=== PATIENT | female | born 1940 | race African-American/Black ===

== ENCOUNTER 2022-07-07 20:35 | Emergency (ER) | payer MEDICARE, OTHER ==
[~2022-07-07] VITALS: Ht 170.2 cm; Wt 78.0 kg
[2022-07-07] MEDS ORDERED: MORPHINE SULFATE 2 MG/ML CPJ (NOT FOR IM USE) IV ONE (21:15)
[2022-07-07 23:21] LABS: BASOPHILS % 0.2 % (0.0-2.0); HEMATOCRIT. 24.7 % (36.0-48.0); HEMOGLOBIN. 8.2 g/dL (12.0-16.0); LYMPHOCYTES % 19.2 % (20.0-50.0); MEAN CORPUSCULAR HEMOGLOBIN 29.2 pg (28.0-32.0); MEAN CORPUSCULAR VOLUME 88.1 fL (81.0-99.0); MEAN PLATELET VOLUME 8.2 fl (7.4-10.4); MONOCYTES % 6.8 % (2.0-8.0); NEUTROPHILS % 72.8 % (40.0-76.0); PLATELET 165 x1000/uL (130-400); RED BLOOD CELL COUNT 2.81 mill/uL (4.2-5.4); RED CELL DISTRIBUTION WIDTH 17.5 % (11.6-14.6)
[2022-07-07 23:27] LABS: CHLORIDE 101 mEq/L (98-107)
[2022-07-08] MEDS ORDERED: POTASSIUM CHLORIDE 20MEQ TABLET SR PO ONE (03:15)
[2022-07-08 03:17] LABS: INR > 10.0; PROTHROMBIN TIME > 100.0 sec (9.6-11.0)
[2022-07-08 06:00] VITALS: BP 161/80
== END 2022-07-08 06:51 | disposition short-term general hospital (02) ==
LOC: ER 21:08 → CANBEDREQ 07-08 08:26
DX: S72.92XA Unspecified fracture of left femur, initial encounter for closed fracture (principal); M97.12XA Periprosthetic fracture around internal prosthetic left knee joint, initial encounter; Z20.822 Contact with and (suspected) exposure to COVID-19; Z88.0 Allergy status to penicillin; Z86.73 Personal history of transient ischemic attack (TIA), and cerebral infarction without residual deficits; Z98.890 Other specified postprocedural states; W18.30XA Fall on same level, unspecified, initial encounter; Y93.89 Activity, other specified; Y92.89 Other specified places as the place of occurrence of the external cause; Y99.8 Other external cause status
CPT/HCPCS: 29505; 36415; 71045; 73030; 73502; 73552; 73562; 80053; 82962; 85025; 85610; 86850; 86900; 86901; 87426; 93005; 96374; 99291; C9803; J2270

== ENCOUNTER 2022-10-13 08:48 | Inpatient (IN) | payer OTHER ==
[~2022-10-13] VITALS: Ht 154.9 cm; Wt 71.3 kg
[2022-10-13] MEDS ORDERED: ETOMIDATE 2MG/ML 10ML VIAL IV ONE (09:00)
[2022-10-13] MEDS ORDERED: SODIUM CHLORIDE 0.9% 1,000 ML IV ONE (09:00)
[2022-10-13] MEDS ORDERED: MIDAZOLAM HCL 100 MG in DEXT 5% WATER 80 ML IV ONE (09:00)
[2022-10-13] MEDS ORDERED: FENTANYL CITRATE/PF 50MCG/ML 2ML VIAL IV ONE (09:00)
[2022-10-13] MEDS ORDERED: SUCCINYLCHOLINE CHLORIDE 200MG/10ML IV ONE (09:00)
[2022-10-13] MEDS ORDERED: MIDAZOLAM HCL 100 MG in SODIUM CHLORIDE 0.9% 80 ML IV ONE (09:00)
[2022-10-13] MEDS ORDERED: NOREPINEPHRINE 8MG/250ML PMX 250 ML IV STA (09:04)
[2022-10-13 09:12] LABS: BASOPHILS % 0.3 % (0.0-2.0); EOSINOPHILS % 0.1 % (0.0-5.0); HEMATOCRIT. 23.9 % (36.0-48.0); HEMOGLOBIN. 7.5 g/dL (12.0-16.0); LYMPHOCYTES % 13.8 % (20.0-50.0); MEAN CORPUSCULAR HEMOGLOBIN 29.1 pg (28.0-32.0); MEAN CORPUSCULAR VOLUME 93.3 fL (81.0-99.0); MONOCYTES % 6.4 % (2.0-8.0); NEUTROPHILS % 79.4 % (40.0-76.0); PLATELET 145 x1000/uL (130-400); RED BLOOD CELL COUNT 2.56 mill/uL (4.2-5.4); RED CELL DISTRIBUTION WIDTH 19.4 % (11.6-14.6)
[2022-10-13 09:17] LABS: CHLORIDE 87 mEq/L (98-107)
[2022-10-13 09:24] LABS: INR 1.5; PROTHROMBIN TIME 16.2 sec (9.6-11.0)
[2022-10-13] MEDS ORDERED: SODIUM BICARBONATE 8.4% 1 MEQ/ML 50ML SYR IV ONE (09:45)
[2022-10-13] MEDS ORDERED: DEXTROSE 50% WATER 50ML SYRINGE IV ONE (09:45)
[2022-10-13] MEDS ORDERED: ALBUTEROL (0.083%) 2.5MG/3ML NEB HHN ONE (09:45)
[2022-10-13] MEDS ORDERED: INSULIN REGULAR (HUMULIN R) 300UNITS/3ML VIAL IV ONE (09:45)
[2022-10-13] MEDS ORDERED: CALCIUM CHLORIDE 1GM/10ML SYR IV ONE (09:45)
[2022-10-13 10:11] LABS: BG BASE EXCESS 11.9 mmol/L (-2.0-2.0); BG CARBOXYHEMOGLOBIN 1.3 % (0.5-1.5); BG DEOXYHEMOGLOBIN 0.3 % (0.0-5.0); BG FRACTION INSPIRED OXYGEN 100; BG HCO3 ACT 37.2 mmol/L (22.0-26.0); BG METHEMOGLOBIN 0.4 % (0.0-1.5); BG OXYGEN SATURATION 99.7 % (92.0-98.5); BG PCO2 55.2 mmHg (35.0-45.0); BG PH 7.447 (7.350-7.450); BG PO2 485.9 mmHg (75.0-100.0); BG SAMPLE SITE RIGHT RADIAL; BG TOTAL HEMOGLOBIN 7.4 g/dL (12.0-18.0); BG TOTAL RESPIRATORY RATE 18 b/min; BG VENT MODE VENT - AC
[2022-10-13] MEDS ORDERED: VANCOMYCIN 1G PREMIX 200 ML IV ONE (10:15)
[2022-10-13] MEDS ORDERED: SODIUM CHLORIDE 0.9% 1000ML BAG (SEPSIS BOLUS) IV ONE (10:15)
[2022-10-13] MEDS ORDERED: MEROPENEM 1,000 MG in SODIUM CHLORIDE 0.9% 100 ML IV SCH ×2 (10:15→21:00)
[2022-10-13] MEDS ORDERED: LIDOCAINE HCL 1% 30ML VIAL (10MG/ML) ONE (10:44)
[2022-10-13] MEDS: DEXT 5%/0.45% NACL 1000ML 1,000 ML IV SCH (10:45)
[2022-10-13] MEDS ORDERED: IPRATROPIUM/ALBUTEROL 0.5-3(2.5)MG/3ML NEB NEB PRN (10:45)
[2022-10-13] MEDS ORDERED: ACETAMINOPHEN 650MG/20.3ML UDC GT PRN ×2 (10:45)
[2022-10-13] MEDS ORDERED: DIPHENHYDRAMINE 50MG/ML VIAL IV PRN (10:45)
[2022-10-13] MEDS ORDERED: ONDANSETRON HCL 4MG/2ML INJ IV PRN (10:45)
[2022-10-13] MEDS ORDERED: VANCOMYCIN 1G PREMIX 200 ML IV SCH (10:45)
[2022-10-13] MEDS ORDERED: ENOXAPARIN 40MG/0.4ML SYR SUBCUT SCH (11:00)
[2022-10-13] MEDS ORDERED: VANCOMYCIN 1500MG in DEXTROSE 5% WATER 250ML IV SCH (12:00)
[2022-10-13] MEDS ORDERED: ALBUTEROL (0.083%) 2.5MG/3ML NEB ONE (13:12)
[2022-10-13] MEDS ORDERED: SODIUM POLYSTYRENE SULFONATE 15 G/60 ML BOT PO NR (14:00)
[2022-10-13 17:27] LABS: CLARITY URINE CLEAR (CLEAR); COLOR URINE YELLOW (YELLOW); KETONES URINE TRACE (NEGATIVE); LEUKOCYTE ESTERASE URINE NEGATIVE (NEGATIVE); NITRITE URINE NEGATIVE (NEGATIVE); OCCULT BLOOD URINE 3+ (NEGATIVE); PH URINE 6.5 (4.5-8.0); PROTEIN URINE 2+ (NEGATIVE); SPECIFIC GRAVITY URINE 1.016 (1.005-1.030); UROBILINOGEN URINE 0.2 E.U./dL (0.2-1.0)
[2022-10-14] VITALS (42 sets, daily range): BP systolic 136–181; BP diastolic 67–99
[2022-10-14] MEDS ORDERED: ENOXAPARIN 80MG/0.8ML SYR SUBCUT SCH ×2 (00:12)
[2022-10-14 06:21] LABS: CHLORIDE 94 mEq/L (98-107)
[2022-10-14 06:37] LABS: PHOSPHORUS 0.7 mg/dL (2.5-4.9)
[2022-10-14 06:43] LABS: BASOPHILS % 0.2 % (0.0-2.0); EOSINOPHILS % 0.1 % (0.0-5.0); HEMATOCRIT. 21.1 % (36.0-48.0); LYMPHOCYTES % 23.6 % (20.0-50.0); MEAN CORPUSCULAR HEMOGLOBIN 29.1 pg (28.0-32.0); MEAN CORPUSCULAR VOLUME 90.7 fL (81.0-99.0); MEAN PLATELET VOLUME 8.3 fl (7.4-10.4); NEUTROPHILS % 69.1 % (40.0-76.0); PLATELET 122 x1000/uL (130-400); RED BLOOD CELL COUNT 2.32 mill/uL (4.2-5.4)
[2022-10-14 07:01] LABS: HEMOGLOBIN. 6.8 g/dL (12.0-16.0)
[2022-10-14] MEDS ORDERED: POTASSIUM CHLORIDE INJ 40 MEQ in DEXT 5% WATER 250 ML IV ONE ×2 (08:00→08:30)
[2022-10-14] MEDS ORDERED: MAGNESIUM 4 G PREMIX 100 ML IV NR (08:00)
[2022-10-14] MEDS: POTASSIUM PHOS,M-BASIC-D-BASIC 20 MMOL in DEXT 5% WATER 243.3333 ML IV NR ×2 (08:19→09:21)
[2022-10-14 08:47] LABS: BG BASE EXCESS 16.8 mmol/L (-2.0-2.0); BG DEOXYHEMOGLOBIN 0.9 % (0.0-5.0); BG METHEMOGLOBIN 0.1 % (0.0-1.5); BG OXYGEN SATURATION 99.1 % (92.0-98.5); BG PCO2 36.3 mmHg (35.0-45.0); BG PH 7.649 (7.350-7.450); BG PO2 114.3 mmHg (75.0-100.0); BG SAMPLE SITE RIGHT RADIAL; BG TOTAL HEMOGLOBIN 7.2 g/dL (12.0-18.0); BG VENT MODE VENT - AC
[2022-10-14] MEDS ORDERED: MEROPENEM 1,000 MG in SODIUM CHLORIDE 0.9% 100 ML IV SCH (09:00)
[2022-10-14] MEDS: ASPIRIN 81MG EC TABLET PO SCH (09:00)
[2022-10-14] MEDS ORDERED: MAGNESIUM 2 G PREMIX 50 ML IV NR (09:30)
[2022-10-14] MEDS: KCL 20MEQ/100ML X 2 FOR TOTAL KCL 40MEQ/200ML IV SCH ×2 (09:42→13:26)
[2022-10-14] MEDS: PANTOPRAZOLE SODIUM 40 MG/VIAL IV SCH (09:52)
[2022-10-14] MEDS ORDERED: POTASSIUM PHOS,M-BASIC-D-BASIC 30 MMOL in SODIUM CHLORIDE 0.9% 500 ML IV ONE (10:30)
[2022-10-14] MEDS ORDERED: VANCOMYCIN 1G PREMIX 200 ML IV SCH ×4 (12:00)
[2022-10-14] MEDS: CEFEPIME 1,000 MG in DEXTROSE 5% WATER 50 ML IV SCH (18:16)
[2022-10-14] MEDS: MIDAZOLAM HCL 100 MG in SODIUM CHLORIDE 0.9% 100 ML IV PRN ×2 (18:26→20:48)
[2022-10-14] MEDS ORDERED: MIDAZOLAM 100MG/100ML PMX 100 ML IV PRN (18:30)
[2022-10-14] MEDS: METRONIDAZOLE 500MG TABLET PO SCH (20:46)
[2022-10-14] MEDS: ATORVASTATIN CALCIUM 40MG TABLET PO SCH (20:46)
[2022-10-14] MEDS: DEXT 5%/0.45% NACL 1000ML 1,000 ML IV SCH (20:47)
[2022-10-15] VITALS (76 sets, daily range): BP systolic 118–167; BP diastolic 66–98
[2022-10-15] MEDS: DEXT 5%/0.45% NACL 1000ML 1,000 ML IV SCH ×3 (02:28→18:59)
[2022-10-15] MEDS: CEFEPIME 1,000 MG in DEXTROSE 5% WATER 50 ML IV SCH ×2 (05:46→18:59)
[2022-10-15] MEDS: METRONIDAZOLE 500MG TABLET PO SCH ×2 (09:55→20:45)
[2022-10-15] MEDS: PANTOPRAZOLE SODIUM 40 MG/VIAL IV SCH (09:55)
[2022-10-15] MEDS: ASPIRIN 81MG EC TABLET PO SCH (09:55)
[2022-10-15] MEDS: ATORVASTATIN CALCIUM 40MG TABLET PO SCH (20:46)
[2022-10-15] MEDS: MIDAZOLAM HCL 100 MG in SODIUM CHLORIDE 0.9% 100 ML IV PRN (20:54)
[2022-10-16] VITALS (75 sets, daily range): BP systolic 109–140; BP diastolic 57–78
[2022-10-16] MEDS: CEFEPIME 1,000 MG in DEXTROSE 5% WATER 50 ML IV SCH ×2 (06:07→19:26)
[2022-10-16] MEDS: DEXT 5%/0.45% NACL 1000ML 1,000 ML IV SCH ×2 (08:45→18:17)
[2022-10-16] MEDS: ASPIRIN 81MG EC TABLET PO SCH (09:00)
[2022-10-16] MEDS: PANTOPRAZOLE SODIUM 40 MG/VIAL IV SCH (09:00)
[2022-10-16] MEDS: METRONIDAZOLE 500MG TABLET PO SCH ×2 (09:00→20:20)
[2022-10-16] MEDS: MIDAZOLAM HCL 100 MG in SODIUM CHLORIDE 0.9% 100 ML IV PRN ×2 (12:47→21:43)
[2022-10-16] MEDS: ATORVASTATIN CALCIUM 40MG TABLET PO SCH (20:21)
[2022-10-17] VITALS (47 sets, daily range): BP systolic 106–155; BP diastolic 56–80
[2022-10-17] MEDS: DEXT 5%/0.45% NACL 1000ML 1,000 ML IV SCH (04:45)
[2022-10-17] MEDS: CEFEPIME 1,000 MG in DEXTROSE 5% WATER 50 ML IV SCH (07:00)
[2022-10-17] MEDS: ASPIRIN 81MG EC TABLET PO SCH (08:24)
[2022-10-17] MEDS: PANTOPRAZOLE SODIUM 40 MG/VIAL IV SCH (08:24)
[2022-10-17] MEDS: MIDAZOLAM HCL 100 MG in SODIUM CHLORIDE 0.9% 100 ML IV PRN (08:24)
[2022-10-17] MEDS: METRONIDAZOLE 500MG TABLET PO SCH (08:25)
[2022-10-17] MEDS ORDERED: MORPHINE SULFATE 2 MG/ML CPJ (NOT FOR IM USE) IV PRN (14:00)
[2022-10-17] MEDS ORDERED: NALOXONE HCL 0.4MG/ML VIAL IV PRN (16:15)
[2022-10-18] VITALS: BP 98/51
[2022-10-18 04:00] VITALS: BP 76/43
[2022-10-18 08:00] VITALS: BP 77/40
[2022-10-18 12:00] VITALS: BP 79/40
[2022-10-18 16:00] VITALS: BP 67/33
[2022-10-18 20:00] VITALS: BP 74/35
[2022-10-19] VITALS: BP 64/30
[2022-10-19 04:00] VITALS: BP 59/28
== END 2022-10-19 09:04 | DRG 870 ==
LOC: ER 08:48 → MICUSO 13:15 → EDBEDREQ 13:16 → EDBEDREQTM 13:16 → EDBEDREQ 13:17 → CVICU 10-14 11:05 → 6EST 10-17 17:20
PROVIDERS: ADMIT Internal Medicine; ATTEND Internal Medicine
PROC: 5A1955Z Respiratory Ventilation, Greater than 96 Consecutive Hours (ICD-10-PCS; principal; 2022-10-13)
PROC: 0BH17EZ Insertion of Endotracheal Airway into Trachea, Via Natural or Artificial Opening (ICD-10-PCS; 2022-10-13)
PROC: 05HY33Z Insertion of Infusion Device into Upper Vein, Percutaneous Approach (ICD-10-PCS; 2022-10-13)
PROC: B54MZZA Ultrasonography of Right Upper Extremity Veins, Guidance (ICD-10-PCS; 2022-10-13)
PROC: 30233N1 Transfusion of Nonautologous Red Blood Cells into Peripheral Vein, Percutaneous Approach (ICD-10-PCS; 2022-10-14)
DX: A41.9 Sepsis, unspecified organism (principal); J96.21 Acute and chronic respiratory failure with hypoxia; I21.4 Non-ST elevation (NSTEMI) myocardial infarction; J18.9 Pneumonia, unspecified organism; E87.1 Hypo-osmolality and hyponatremia; E87.20 Acidosis, unspecified; G93.40 Encephalopathy, unspecified; J90 Pleural effusion, not elsewhere classified; E44.0 Moderate protein-calorie malnutrition; I46.9 Cardiac arrest, cause unspecified; Z66 Do not resuscitate; E11.9 Type 2 diabetes mellitus without complications; I10 Essential (primary) hypertension; D69.6 Thrombocytopenia, unspecified; Z20.822 Contact with and (suspected) exposure to COVID-19; D50.0 Iron deficiency anemia secondary to blood loss (chronic); E87.5 Hyperkalemia; E83.42 Hypomagnesemia; E87.6 Hypokalemia; Z88.0 Allergy status to penicillin; Z99.81 Dependence on supplemental oxygen; Z51.5 Encounter for palliative care; Z86.73 Personal history of transient ischemic attack (TIA), and cerebral infarction without residual deficits; Z68.29 Body mass index [BMI] 29.0-29.9, adult
CPT/HCPCS: 31500; 36415; 36573; 36600; 71045; 71250; 80053; 81003; 82375; 82805; 83605; 83735; 83880; 84100; 84145; 84484; 85025; 86850; 86900; 86920; 87426; 87804; 93005; 93306; 94002; 94003; 94640; 99291; A6261; C1725; C9113; C9803; J0692; J1650; J1815; J2185; J2250; J2270; J3010; J3370; J3475; J3480; J3490; J7030; J7040; J7050; J7060; P9016